=== PATIENT | female | born 1950 | race Caucasian/White ===

== ENCOUNTER 2018-06-18 02:29 | Inpatient (IN) | payer MEDICARE, OTHER ==
[2018-06-18] MEDS ORDERED: ATORVASTATIN 80 MG TAB PO STA (02:45)
--- NOTE | 2018-06-18 02:45 | ED ---
Chest Pain HPI - General Chief Complaint: Chest Pain Stated Complaint: Chest Pain Time Seen by Provider: 06/18/18 02:30 Source: patient Mode of arrival: ambulatory Limitations: no limitations - History of Present Illness Initial Comments: This patient is a 68-year-old woman with history of hypertension who is transferred here from [facility] to go to the [facility]. The patient's symptoms started around midnight, while she was lying in bed. She indicates pain to substernal area and states that radiates to left arm. She indicates an aching/heaviness. It was initially severe. She had some coming nausea. The patient did go to the other hospital, and it was reported that she had an EKG that showed a STEMI. Her case was discussed with Dr. Michelle, who is covering cardiology [facility] and he called here to report patient appeared to be having a true posterior MO., The patient reports that she is indeed having marked relief of her symptoms. Patient was given oxygen, aspirin, morphine, heparin, and transferred here. MD Complaint: chest pain Onset/Timin -: hour(s) Onset: during rest Pain Location: substernal Pain Radiation: LUE Severity: mild Quality: aching, heaviness Consistency: constant Improves With: medication-other Worsens With: nothing Anginal Symptoms: nausea Treatments Prior to Arrival: aspirin, oxygen, other - Related Data Home Medications Medication Instructions Recorded Confirmed DULoxetine HCL [Cymbalta] 60 mg PO BID 06/18/18 06/18/18 Metoprolol Tartrate [Lopressor] 12.5 mg PO BID 06/18/18 06/18/18 Omeprazole 40 mg PO DAILY 06/18/18 06/18/18 Oxybutynin Chloride [Oxybutynin 15 mg PO DAILY 06/18/18 06/18/18 Chloride ER] Simvastatin [Zocor] 20 mg PO HS 06/18/18 06/18/18 Allergies Allergy/AdvReac Type Severity Reaction Status Date / Time No Known Allergies Allergy Verified 06/18/18 02:38 Review of Systems ROS Statement: Those systems with pertinent positive or pertinent negative responses have been documented in the HPI. ROS Other: All systems not noted in ROS Statement are negative. Constitutional: Denies: fever, chills Respiratory: Denies: cough, dyspnea Cardiovascular: Reports: chest pain. Denies: palpitations, orthopnea, edema, syncope Gastrointestinal: Reports: nausea. Denies: abdominal pain, vomiting, melena, hematochezia Genitourinary: Denies: dysuria, hematuria Musculoskeletal: Denies: back pain Skin: Denies: rash Neurological: Denies: headache, weakness, numbness Hematological/Lymphatic: Denies: easy bleeding EKG Findings - EKG Comments: EKG Findings:: Patient appears to have very minimal ST elevation in lead 3. Mild ST depressions in V2 and V3. - EKG Results: EKG: interpreted by ERMD, sinus rhythm (With PACs. Rate 87 bpm), normal axis Past Medical History Past Medical History: Hyperlipidemia, Hypertension Additional Past Medical History / Comment(s): peripheral neuropathy. History of Any Multi-Drug Resistant Organisms: None Reported Past Surgical History: Adenoidectomy, Cholecystectomy, Tonsillectomy, Tubal Ligation Past Psychological History: No Psychological Hx Reported Smoking Status: Former smoker Past Alcohol Use History: None Reported Past Drug Use History: None Reported - Past Family History Mother Family Medical History: Cancer Additional Family Medical History / Comment(s): liver Father Family Medical History: Congestive Heart Failure (CHF) Brother(s) Family Medical History: Congestive Heart Failure (CHF) Additional Family Medical History / Comment(s): General Exam Limitations: no limitations General appearance: alert, in no apparent distress Head exam: Present: atraumatic, normocephalic Eye exam: Present: normal appearance, PERRL, EOMI. Absent: scleral icterus, conjunctival injection ENT exam: Present: normal oropharynx Neck exam: Present: normal inspection Respiratory exam: Present: normal lung sounds bilaterally. Absent: respiratory distress, wheezes, rales, rhonchi, stridor, chest wall tenderness Course Vital Signs 06/18/18 06/18/18 02:34 02:46 Temperature 99.2 F Pulse Rate 93 93 Respiratory 16 16 Rate Blood Pressure 144/87 131/84 O2 Sat by Pulse 98 98 Oximetry Chest Pain MDM - MDM Patient is 68-year-old woman transferred here from [facility] to go to the [facility]. As the [facility] was not staffed on patient arrival she is seen in the emergency department. Did discuss the case with cardiology. Critical Care Time Critical Care Time: Yes (30 minutes) Disposition Clinical Impression: Acute coronary syndrome Disposition: ADMITTED IP TO THIS HOSP Condition: Critical Is patient prescribed a controlled substance at d/c from ED?: No
[2018-06-18 02:47] LABS: HCT 36.3 % (34.0-46.0); MCH 28.4 pg (25.0-35.0); MCV 86.1 fL (80.0-100.0); Mean Platelet Volume 8.3; Platelet Count 321 k/uL (150-450); RBC 4.22 m/uL (3.80-5.40); RDW 14.2 % (11.5-15.5); WBC 10.8 k/uL (3.8-10.6)
[2018-06-18] MEDS ORDERED: LIDOCAINE 1% INJ 10MG/ML (20 ML MDV) ONE (02:55)
[2018-06-18] MEDS ORDERED: SODIUM CHLORIDE 0.9% 500 ML 500 ML IV ONE (03:00)
[2018-06-18 03:13] LABS: Albumin 4.1 g/dL (3.5-5.0); Calcium 9.4 mg/dL (8.4-10.2); Potassium 4.5 mmol/L (3.5-5.1); Total Bilirubin 0.3 mg/dL (0.2-1.3); Total Protein 7.6 g/dL (6.3-8.2)
[2018-06-18] MEDS ORDERED: LIDOCAINE 1% INJ 10MG/ML (20 ML MDV) SQ ONE ×2 (03:14)
[2018-06-18 03:20] LABS: INR 0.9 (<1.2); Prothrombin Time 10.2 sec (9.0-12.0)
[2018-06-18] MEDS: NITROGLYCERIN 1000MCG/10ML SYRINGE INTRACORON ONE ×4 (03:21→04:03)
[2018-06-18 03:24] LABS: Creatine Kinase MB 17.6 ng/mL (0.0-2.4)
[2018-06-18 03:25] LABS: Partial Thromboplastin Time 146.7 sec (22.0-30.0)
[2018-06-18] MEDS ORDERED: NITROGLYCERIN SL TABS 0.4 MG TAB SUBLINGUAL ONE (03:27)
[2018-06-18] MEDS ORDERED: BIVALIRUDIN BOLUS 250 MG/50 ML IV ONE (03:28)
[2018-06-18] MEDS ORDERED: BIVALIRUDIN 250 MG in SODIUM CHLORIDE 0.9% 50 ML IV ONE (03:29)
[2018-06-18] MEDS ORDERED: IOPAMIDOL-370 100ML BTL INJ ONE ×2 (03:34→04:04)
[2018-06-18 03:49] LABS: Troponin I 1.34 ng/mL (0.000-0.034)
[2018-06-18] MEDS ORDERED: CLOPIDOGREL 75 MG TAB ONE (03:53)
[2018-06-18] MEDS ORDERED: CLOPIDOGREL 75 MG TAB PO ONE (03:56)
[2018-06-18] MEDS ORDERED: amLODIPine 5 MG TAB ONE (03:59)
[2018-06-18] MEDS ORDERED: amLODIPine 5 MG TAB PO ONE (04:00)
[2018-06-18] MEDS ORDERED: ZOLPIDEM 5 MG TAB PO PRN (04:19)
[2018-06-18] MEDS ORDERED: RX INFO: IV CONTRAST WAS GIVEN 1 EACH MISC MISCELLANE PRN (04:19)
[2018-06-18] MEDS ORDERED: MAG HYDROX/AL HYDROX/SIMETH 30 ML CUP PO PRN (04:19)
[2018-06-18] MEDS ORDERED: ATROPINE SULFATE 0.1 MG/ML 10ML SYRINGE IV PRN (04:19)
[2018-06-18] MEDS ORDERED: NITROGLYCERIN SL TABS 0.4 MG TAB SUBLINGUAL PRN (04:19)
[2018-06-18] MEDS: SODIUM CHLORIDE 0.9% 1,000 ML IV SCH ×4 (04:30→11:22)
[2018-06-18 04:54] LABS: Glucose,Whole Blood 129 mg/dL (75-99)
[2018-06-18] MEDS: LISINOPRIL 10 MG TAB PO SCH ×2 (07:11→09:48)
--- NOTE | 2018-06-18 08:13 | CC ---
CARDIAC CATHETERIZATION REPORT DATE OF SERVICE: 06/18/2018. PROCEDURE: 1. Left heart catheterization and coronary angiography. 2. PTCA and stenting of the first obtuse marginal branch of circumflex with a drug- eluting stent. 3. PTCA and stenting of mid circumflex coronary artery with a drug-eluting stent. PERFORMED BY: Dr. Mary Resendiz. SEDATION: Moderate conscious sedation time was 62 minutes. The patient was administered Versed. Oxygen saturation, hemodynamics and EKG were monitored closely. CLINICAL INFORMATION: Mrs. Elana Perez is a 68-year-old lady with a history of hypertension, hyperlipidemia. At about 11:30 pm last night she developed chest pressure while she was playing with her granddaughter and developed chest discomfort radiating to the throat, came into the emergency room at [facility]. An EKG revealed precordial ST depression. She was transferred here after discussion with Dr. Maria Luz Michelle. I evaluated the patient in the emergency room and advised prompt cardiac catheterization with a suspicion that she may have a circumflex lesion. She was hemodynamically stable and her chest pain had improved when I saw her. PROCEDURE NOTE: Under local anesthesia and strict aseptic precautions, a 6-Russian introducer was placed in the right femoral artery. Using a standard right Jason catheter, I performed selective coronary angiography of the right coronary artery and used a guide catheter for the left coronary artery. I used a 3.5 left Jason type guide catheter of 6- Russian caliber. A pigtail catheter was used to check LV pressure but LV gram was not performed. Following cardiac catheterization, I proceeded to perform PCI of circumflex marginal and mid circumflex expeditiously. CARDIAC CATHETERIZATION FINDINGS: The left ventricular end-diastolic pressure was about 20 mmHg without any gradient across aortic valve. CORONARY ANGIOGRAPHY FINDINGS: LEFT MAIN CORONARY ARTERY: Short patent vessel that immediately bifurcates into LAD and circumflex. No significant disease. LEFT ANTERIOR DESCENDING CORONARY ARTERY: Good caliber vessel extends along the anterior wall. There is moderate calcification, gives off a fair-sized septal and a fair-sized diagonal and several septal branches runs all the way to the apex and curves over the apex to supply the inferoapical portion of left ventricle. No significant disease is noted in the LAD system. LEFT POSTERIOR CIRCUMFLEX CORONARY ARTERY: Technically a nondominant vessel, gives off a large-sized obtuse marginal that runs laterally and in the mid to distal segment. There was a 99% stenosis with calcification and sluggish flow. This could be the culprit vessel. The continuation of circumflex in the AV groove also has a mid lesion of about 80% distally bifurcates into 2 small branches. Mid circumflex therefore has 80% lesion and the circumflex marginal has a 99% heavily calcified lesion, but the amount of myocardium supplied by both the branches is relatively small but cumulatively of moderate extent. RIGHT CORONARY ARTERY: This is a technically dominant vessel, moderate calcification in the mid segment has about a 40% lesion and distally it bifurcates into a PDA and PLV. PLV is larger, supplies a fair amount of myocardium. Mid lesion is about 40-45 percent. No critical lesions are noted. The acute marginals are free of significant disease. There is moderate calcification. The RCA therefore is dominant with a long mid segment of 40% lesion and distally bifurcates into 2 branches. Left ventriculogram was not performed. Following the cardiac catheterization, I proceeded to perform PCI of the circumflex system. PCI PROCEDURE DETAILS: A JL3.5 guide catheter was used to cannulate the left coronary artery. A run-through wire was used to cross the lesion in the circumflex marginal. I performed predilatation of the lesion with a 2.25 x 12 mm Trek balloon. Following this, I deployed a 12 mm 2.5 caliber Xience stent. The proximal end of the stent had a small dissection. This was somewhat of a larger stent but I had used it because hopefully the restenoses would be lower. However, the proximal dissection was very focal. I addressed this by telescoping another 2.0 caliber Meldrim stent of 8 mm length at 12 atmospheres. Excellent angiographic result was achieved. I then tried to advance the same wire into the main circumflex, but I could not. I switched over to a BMW wire with a steep curve. With this, I was able to advance down into the circumflex midportion. I then deployed a 2.0 caliber angelina stent into the mid circumflex at 12 atmospheres. Excellent angiographic result was achieved. Patient had precordial ST depression with a mid circumflex dilatation, but not with OM dilatation. She had no significant chest discomfort with either dilatation. Excellent angiographic result without complication was achieved. The sheath was taken out and Angio-Seal device used to secure hemostasis. However, there was some oozing and FemoStop was applied. The patient was pain free, hemodynamically stable with a good angiographic result and she will be transferred to the ICU. Results were discussed with the patient and family. CHIP / HERMINIA: [id number] /
--- NOTE | 2018-06-18 08:13 | CONS ---
CONSULTATION Mrs. Elana Perez is a 68-year-old lady with a history of hypertension, hyperlipidemia, and depression. She was seen by me in the emergency room upon transfer from [facility] where she presented with chest pain starting at 11:30 pm. The patient was hemodynamically stable. The pain had improved. She was playing with her granddaughter when she developed chest discomfort radiating to the throat, had some diaphoresis. No nausea or vomiting. Pain persisted. She went to the emergency room at [facility], had EKG which revealed precordial ST depression and this EKG was reviewed by Dr. Maria Luz Michelle and transferred here for cardiac catheterization. The patient was hemodynamically stable and the chest pain had improved. PAST MEDICAL HISTORY: 1. Hypertension. 2. Hyperlipidemia. 3. Negative stress test according to the patient in 2017. 4. History of depression. MEDICATIONS: At home include simvastatin 20 mg daily, omeprazole 40 mg daily, metoprolol tartrate 12.5 mg b.i.d., Cymbalta 20 mg daily. ALLERGIES: None. REVIEW OF SYSTEMS: Unremarkable other than above-mentioned facts. PHYSICAL EXAMINATION: Blood pressure was 180/70, pulse rate is 70 per minute. HEENT: Unremarkable. Fundus was not examined by me. Neck is supple. No JVD. I do not hear a carotid bruit. Heart exam reveals S1, S2 heard normally. No significant murmurs. Lungs are clear. Abdomen is soft, nontender. Lower extremities reveal diminished pulses. Central nervous system was grossly within normal limits. EKG revealed sinus mechanism with a precordial ST depression in leads V1 to V3, very subtle ST elevation in 2, 3, AVF on the initial EKG, but subsequent EKGs showed improvement with almost near normalization. IMPRESSION: 1. Acute non-ST elevation myocardial infarction probably ischemia in circumflex distribution. 2. Hypertension. 3. Hyperlipidemia. 4. History of depression. RECOMMENDATION: I recommended prompt cardiac catheterization and PCI and proceeded to perform the procedure expeditiously. MMODL / IJN: [id number] /
[2018-06-18] MEDS: METOPROLOL TARTRATE 25 MG TAB PO SCH ×2 (09:48→21:03)
[2018-06-18] MEDS: ASPIRIN 81 MG PO SCH (09:53)
[2018-06-18 09:54] VITALS: BMI 32.8
--- NOTE | 2018-06-18 11:38 | ECHOF ---
Referral Reason:NSTEMI LCX PCI MEASUREMENTS -------- HEIGHT: 160.0 cm WEIGHT: 83.9 kg BP: IVSd: 1.1 cm (0.6 - 1.1) LVIDd: 4.0 cm (3.9 - 5.3) LVPWd: 1.0 cm (0.6 - 1.1) IVSs: 1.2 cm LVIDs: 3.1 cm LVPWs: 0.9 cm MV EXCURSION: 12.495 mm (> 18.000) MV EF SLOPE: 110 mm/s (70 - 150) EPSS: 1.5 cm MV E Shayan: 0.90 m/s MV DecT: 195 ms MV A Shayan: 0.74 m/s MV E/A Ratio: 1.21 RAP: 5.00 mmHg RVSP: 8.72 mmHg FINDINGS -------- Sinus rhythm. This was a technically difficult study with suboptimal views. The left ventricular size is normal. Left ventricular wall thickness is normal. Overall left vent ricular systolic function is mild-moderately impaired with, an EF between 40 - 45 %. Apical lateral LV wall motion is hypokinetic. Apical inferior LV wall motion is hypokinetic. Apical septum LV wall motion is hypokinetic. The right ventricle is normal in size and function. The left atrium is normal in size. The right atrium is normal in size. Lumason used The aortic valve is trileaflet and appears structurally normal. There is trace mitral regurgitation. Trace tricuspid regurgitation present. The right ventricular systolic pressure, as measured by Dopp ler, is 8.72mmHg. Pulmonic valve appears structurally normal. The aortic root size is normal. IVC Not well visulized. The pericardium is normal. CONCLUSIONS -------- 1. Sinus rhythm. 2. This was a technically difficult study with suboptimal views. 3. The left ventricular size is normal. 4. Left ventricular wall thickness is normal. 5. Overall left ventricular systolic function is mild-moderately impaired with, an EF between 40 - 45 %. 6. Apical lateral LV wall motion is hypokinetic. 7. Apical inferior LV wall motion is hypokinetic. 8. Apical septum LV wall motion is hypokinetic. 9. The right ventricle is normal in size and function. 10. The left atrium is normal in size. 11. The right atrium is normal in size. 12. Lumason used 13. The aortic valve is trileaflet and appears structurally normal. 14. There is trace mitral regurgitation. 15. Trace tricuspid regurgitation present. 16. The right ventricular systolic pressure, as measured by Doppler, is 8.72mmHg. 17. Pulmonic valve appears structurally normal. 18. The aortic root size is normal. 19. IVC Not well visulized. 20. The pericardium is normal. CALL WORKER: Radha Thompson RDCS
[2018-06-18 11:57] LABS: Glucose,Whole Blood 104 mg/dL (75-99)
--- NOTE | 2018-06-18 12:23 | P.HPIM ---
History of Present Illness This is a pleasant 68 years old female with past medical history of hyperlipidemia, hypertension, peripheral neuropathy. who presents because of chest pain, patient states that about one week she has episodes of chest pain which is resolved by itself. However last night around 11 PM she developed severe central chest pain radiating to the back, left arm, neck and jaw. Pain was progressive. Not associated with dyspnea or dizziness however she has some nausea without vomiting. On admission her troponin was 1.3, went up this morning to 39.1 this morning. EKG showing ST elevation myocardial infarction in leads 2, 3 and aVF. She has mild leukocytosis of 10.8 K, creatinine 1.1, sugar is 129-139. Patient underwent cardiac cath this morning she had 80% narrowing in the circumflex artery status post PCI. Echo showing ejection fraction 40-45% Review of Systems CONSTITUTIONAL: No fever, no malaise, no fatigue. HEENT: No recent visual problems or hearing problems. Denied any sore throat. CARDIOVASCULAR: No orthopnea, PND, no palpitations, no syncope. PULMONARY: No shortness of breath, no cough, no hemoptysis. GASTROINTESTINAL: No diarrhea, no nausea, no vomiting, no abdominal pain. Normoactive bowel sounds. NEUROLOGICAL: No headaches, no weakness, no numbness. HEMATOLOGICAL: Denies any bleeding or petechiae. GENITOURINARY: Denies any burning micturition, frequency, or urgency. MUSCULOSKELETAL/RHEUMATOLOGICAL: Denies any joint pain, swelling, or any muscle pain. ENDOCRINE: Denies any polyuria or polydipsia. Past Medical History Past Medical History: Hyperlipidemia, Hypertension Additional Past Medical History / Comment(s): peripheral neuropathy. History of Any Multi-Drug Resistant Organisms: None Reported Past Surgical History: Adenoidectomy, Cholecystectomy, Tonsillectomy, Tubal Ligation Additional Past Surgical History / Comment(s): Cataract removal Past Psychological History: No Psychological Hx Reported Smoking Status: Former smoker Past Alcohol Use History: None Reported Past Drug Use History: None Reported - Past Family History Mother Family Medical History: Cancer Additional Family Medical History / Comment(s): liver Father Family Medical History: Congestive Heart Failure (CHF) Brother(s) Family Medical History: Congestive Heart Failure (CHF) Additional Family Medical History / Comment(s): Medications and Allergies Home Medications Medication Instructions Recorded Confirmed Type DULoxetine HCL [Cymbalta] 60 mg PO BID 06/18/18 06/18/18 History Indomethacin [Indocin] 50 mg PO TID 06/18/18 06/18/18 History Oxybutynin Chloride [Oxybutynin 15 mg PO DAILY 06/18/18 06/18/18 History Chloride ER] RX: Metoprolol Tartrate [Lopressor] 12.5 mg PO BID 06/18/18 06/18/18 History RX: Omeprazole 40 mg PO DAILY 06/18/18 06/18/18 History Simvastatin [Zocor] 20 mg PO HS 06/18/18 06/18/18 History Allergies Allergy/AdvReac Type Severity Reaction Status Date / Time No Known Allergies Allergy Verified 06/18/18 02:38 Physical Exam Vitals: Vital Signs Temp Pulse Resp BP Pulse Ox 06/18/18 11:00 75 12 98/44 96 06/18/18 10:30 77 12 88/60 96 06/18/18 10:00 76 24 81/57 96 06/18/18 09:50 74 12 81/57 98 06/18/18 09:40 79 20 113/61 98 06/18/18 09:30 78 14 83/67 96 06/18/18 09:20 80 24 83/67 98 06/18/18 09:10 79 25 H 87/65 98 06/18/18 09:00 75 25 H 97/69 97 06/18/18 08:50 74 11 L 97/69 98 06/18/18 08:40 75 13 94/57 97 06/18/18 08:30 74 7 L 84/58 98 06/18/18 08:20 77 15 84/50 98 06/18/18 08:10 79 18 71/43 97 06/18/18 08:00 99.1 F 79 21 85/41 95 06/18/18 07:50 75 22 85/41 97 06/18/18 07:40 82 11 L 73/49 97 06/18/18 07:30 80 11 L 83/31 98 06/18/18 07:20 92 23 76/59 96 06/18/18 07:10 87 19 80/46 96 06/18/18 07:00 90 18 95 06/18/18 06:50 92 16 84/61 94 L 06/18/18 06:40 80 22 85/65 94 L 06/18/18 06:30 81 15 97 06/18/18 06:20 78 23 89/58 95 06/18/18 06:10 75 21 89/58 95 06/18/18 06:00 82 14 103/51 97 06/18/18 05:50 80 24 103/51 98 06/18/18 05:40 81 12 104/69 98 06/18/18 05:30 76 22 103/71 98 06/18/18 05:20 78 12 103/71 97 06/18/18 05:19 98 06/18/18 05:10 78 12 93/69 98 06/18/18 05:00 98.6 F 74 22 97/82 94 L 06/18/18 04:52 20 06/18/18 04:45 16 06/18/18 02:46 93 16 131/84 98 06/18/18 02:34 99.2 F 93 16 144/87 98 Intake and Output 06/17/18 06/18/18 06/18/18 22:59 06:59 14:59 Intake Total 456.8 1075 Output Total 550 950 Balance -93.2 125 Intake: IV 456.8 1075 Sodium Chloride 0.9% 1, 225 75 000 ml @ 100 mls/hr IV . Q10H MATILDA Rx#:[id number] Sodium Chloride 0.9% 1, 1000 000 ml @ 250 mls/hr IV . Q4H MATILDA Rx#:[id number] Output: Urine 550 950 Other: # Voids 1 1 Weight 84 kg 84 kg GENERAL: The patient is alert and oriented x3, not in any acute distress. Well developed, well nourished. HEENT: Pupils are round and equally reacting to light. EOMI. No scleral icterus. No conjunctival pallor. Normocephalic, atraumatic. No pharyngeal erythema. No thyromegaly. CARDIOVASCULAR: S1 and S2 present. No murmurs, rubs, or gallops. PULMONARY: Chest is clear to auscultation, no wheezing or crackles. ABDOMEN: Soft, nontender, nondistended, normoactive bowel sounds. No palpable organomegaly. MUSCULOSKELETAL: No joint swelling or deformity. EXTREMITIES: No cyanosis, clubbing, or pedal edema. NEUROLOGICAL: Gross neurological examination did not reveal any focal deficits. SKIN: No rashes. Results CBC & Chem 7: 06/18/18 02:35 06/18/18 02:35 Labs: Abnormal Lab Results - Last 24 Hours (Table) 06/18/18 06/18/18 06/18/18 Range/Units 02:35 02:35 02:35 WBC (3.8-10.6) k/uL APTT 146.7 H* (22.0-30.0) sec Chloride 108 H (98-107) mmol/L BUN 20 H (7-17) mg/dL Creatinine 1.12 H (0.52-1.04) mg/dL Glucose 139 H (74-99) mg/dL POC Glucose (mg/dL) (75-99) mg/dL AST 42 H (14-36) U/L Total Creatine Kinase 420 H (30-135) U/L CK-MB (CK-2) 17.6 H (0.0-2.4) ng/mL Troponin I 1.340 H* (0.000-0.034) ng/mL 06/18/18 06/18/18 06/18/18 Range/Units 02:35 04:52 08:23 WBC 10.8 H (3.8-10.6) k/uL APTT (22.0-30.0) sec Chloride (98-107) mmol/L BUN (7-17) mg/dL Creatinine (0.52-1.04) mg/dL Glucose (74-99) mg/dL POC Glucose (mg/dL) 129 H (75-99) mg/dL AST (14-36) U/L Total Creatine Kinase (30-135) U/L CK-MB (CK-2) (0.0-2.4) ng/mL Troponin I 39.100 H* (0.000-0.034) ng/mL Thrombosis Risk Factor Assmnt - Choose All That Apply Each Factor Represents 1 point: Medical pt on bed rest, Obesity (BMI >25) Each Risk Factor Represents 2 Points: Age 61-74 years Other congenital or acquired thrombophilia - If yes, enter type in comment: No Thrombosis Risk Factor Assessment Total Risk Factor Score: 4 Thrombosis Risk Factor Assessment Level: Moderate Risk Assessment and Plan Assessment: Acute ST elevation myocardial infarction in the inferior limits Acute coronary disease with 80% obstruction in the circumflex artery, status post cardiac catheterization and PCI Acute systolic heart failure with EF 40-45% Plan: This is a pleasant 68 years old female who presents because of acute STEMI. Status post cardiac cath. Cardiology team R following the case. Patient currently on aspirin, Lipitor, Plavix and lisinopril with Lopressor. Labs and medication were reviewed.. Continue same treatment. Continue with symptomatic treatment. Resume home medication. Monitor lytes and vitals. DVT and GI prophylaxis. Further recommendations of the clinical course of the patient DVT prophylaxis: Subcutaneous heparin GI Prophylaxis: Pepcid Prognosis is guarded
[2018-06-18] MEDS: DULoxetine HCL 60 MG CAPSULE.DR PO SCH ×2 (12:45→20:57)
[2018-06-18] MEDS: PANTOPRAZOLE 40 MG TABLET PO SCH (12:45)
[2018-06-18] MEDS: ATORVASTATIN 80 MG TAB PO SCH (20:57)
--- NOTE | 2018-06-18 22:14 | PN ---
PROGRESS NOTE This patient came with acute posterior wall myocardial infarction and underwent stent to the obtuse marginal branch and the circumflex coronary artery. The patient is feeling better. Her blood pressure remains in the range of 80 to 90 mmHg. Patient has been getting a fluid challenge. First and second heart sounds are heard. Lungs are clear to auscultation and percussion. Patient's troponin went up to 39. Continue the IV fluids. We will hold the lisinopril at present until the patient's blood pressure is stable. MMODL / IJN: [id number] /
[2018-06-19] MEDS: SODIUM CHLORIDE 0.9% 1,000 ML IV SCH (05:26)
[2018-06-19 05:36] LABS: Basophils # (A) 0.1 k/uL (0-0.2); Basophils % (A) 1 %; Eosinophils # (A) 0.2 k/uL (0-0.7); Eosinophils % (A) 2 %; HCT 35.5 % (34.0-46.0); Lymphocytes # (A) 2.3 k/uL (1.0-4.8); Lymphocytes % (A) 23 %; MCH 27.6 pg (25.0-35.0); MCV 88.9 fL (80.0-100.0); Mean Platelet Volume 7.8; Monocytes # (A) 0.9 k/uL (0-1.0); Monocytes % (A) 9 %; Neutrophils # (A) 6.3 k/uL (1.3-7.7); Neutrophils % (A) 63 %; Platelet Count 259 k/uL (150-450); RBC 3.99 m/uL (3.80-5.40); RDW 14.2 % (11.5-15.5)
[2018-06-19 05:46] LABS: Calcium 8.4 mg/dL (8.4-10.2); Potassium 4.2 mmol/L (3.5-5.1)
[2018-06-19] MEDS: PANTOPRAZOLE 40 MG TABLET PO SCH (07:32)
[2018-06-19] MEDS: CLOPIDOGREL 75 MG TAB PO SCH (08:36)
[2018-06-19] MEDS: DULoxetine HCL 60 MG CAPSULE.DR PO SCH ×2 (08:36→21:10)
[2018-06-19] MEDS: ASPIRIN 81 MG PO SCH (08:36)
[2018-06-19] MEDS: METOPROLOL TARTRATE 25 MG TAB PO SCH ×2 (10:35→21:06)
--- NOTE | 2018-06-19 12:11 | PN ---
PROGRESS NOTE This patient is status post posterior wall myocardial infarction. Patient is stable. She is sitting in a chair and she at the bedside denies any respiratory distress. The patient's blood pressure now is 110/80 mmHg. First and second heart sounds are normal. Lungs are clear to auscultation and percussion. Patient's urine output is good. The patient's creatinine is 0.86. We will still hold the Lopressor today. Lisinopril is discontinued. Patient will be ambulated and if the blood pressure permits, we will start her on Lopressor 25 mg b.i.d. from tomorrow. The patient's overall echocardiogram reveals a normal left ventricular systolic function. MMODL / IJN: [id number] /
--- NOTE | 2018-06-19 18:27 | P.PN ---
Subjective This is a pleasant 68 years old female with past medical history of hyperlipidemia, hypertension, peripheral neuropathy. who presents because of chest pain, patient states that about one week she has episodes of chest pain which is resolved by itself. However last night around 11 PM she developed severe central chest pain radiating to the back, left arm, neck and jaw. Pain was progressive. Not associated with dyspnea or dizziness however she has some nausea without vomiting. On admission her troponin was 1.3, went up this morning to 39.1 this morning. EKG showing ST elevation myocardial infarction in leads 2, 3 and aVF. She has mild leukocytosis of 10.8 K, creatinine 1.1, sugar is 129-139. Patient underwent cardiac cath this morning she had 80% narrowing in the circumflex artery status post PCI. Echo showing ejection fraction 40-45% 06/19/2018 Patient presents with inferior myocardial infarction, she is a status post stenting of the obtuse marginal branch of the circumflex artery. Patient denies chest pain or dyspnea today. Hemodynamically stable. CBC and BMP were unremarkable. Her blood pressure was on the low side AUGUST inhibitor was on hold. As well as Lopressor was held. Cardiology will recommend to start beta ga again tomorrow morning Objective - Vital Signs Vital signs: Vital Signs Temp 98.1 F 06/19/18 16:00 Pulse 86 06/19/18 16:00 Resp 16 06/19/18 16:00 BP 85/63 06/19/18 16:00 Pulse Ox 99 06/19/18 16:00 Intake & Output 06/18/18 06/19/18 06/19/18 18:59 06:59 18:59 Intake Total 2495 1110 660 Output Total 1750 2650 0 Balance 745 -1540 660 Weight 84 kg 88.3 kg Intake: IV 1775 1110 60 Sodium Chloride 0.9% 1, 775 1110 60 000 ml @ 100 mls/hr IV . Q10H [facility] Rx#:[id number] Sodium Chloride 0.9% 1, 1000 000 ml @ 250 mls/hr IV . Q4H [facility] Rx#:[id number] Oral 720 600 Output: Urine 1750 2650 0 Other: Voiding Method Bedside Commode Bedside Commode Toilet # Voids 1 1 1 - Exam GENERAL: The patient is alert and oriented x3, not in any acute distress. Well developed, well nourished. HEENT: Pupils are round and equally reacting to light. EOMI. No scleral icterus. No conjunctival pallor. Normocephalic, atraumatic. No pharyngeal erythema. No thyromegaly. CARDIOVASCULAR: S1 and S2 present. No murmurs, rubs, or gallops. PULMONARY: Chest is clear to auscultation, no wheezing or crackles. ABDOMEN: Soft, nontender, nondistended, normoactive bowel sounds. No palpable organomegaly. MUSCULOSKELETAL: No joint swelling or deformity. EXTREMITIES: No cyanosis, clubbing, or pedal edema. NEUROLOGICAL: Gross neurological examination did not reveal any focal deficits. SKIN: No rashes. - Labs CBC & Chem 7: 06/19/18 05:06 06/19/18 05:06 Labs: Abnormal Lab Results - Last 24 Hours (Table) 06/19/18 06/19/18 Range/Units 05:06 05:06 Hgb 11.0 L (11.4-16.0) gm/dL Chloride 111 H (98-107) mmol/L Glucose 122 H (74-99) mg/dL Assessment and Plan Assessment: Acute ST elevation myocardial infarction in the inferior limits Acute coronary disease with 80% obstruction in the circumflex artery, status post cardiac catheterization and PCI Acute systolic heart failure with EF 40-45% Plan: This is a pleasant 68 years old female who presents because of acute STEMI. Status post cardiac cath. Cardiology team R following the case. Patient currently on aspirin, Lipitor, Plavix and lisinopril with Lopressor. Labs and medication were reviewed.. Continue same treatment. Continue with symptomatic treatment. Resume home medication. Monitor lytes and vitals. DVT and GI prophylaxis. Further recommendations of the clinical course of the patient DVT prophylaxis: Subcutaneous heparin GI Prophylaxis: Pepcid Prognosis is guarded
[2018-06-19] MEDS: ATORVASTATIN 80 MG TAB PO SCH (21:10)
[2018-06-20] MEDS ORDERED: SODIUM CHLORIDE 0.9% 500 ML 200 ML IV ONE (00:28)
[2018-06-20 00:55] LABS: HGB 11.1 gm/dL (11.4-16.0); MCH 28.8 pg (25.0-35.0); MCHC 33.6 g/dL (31.0-37.0); MCV 85.8 fL (80.0-100.0); Mean Platelet Volume 7.1; Platelet Count 268 k/uL (150-450); RBC 3.85 m/uL (3.80-5.40); WBC 12.6 k/uL (3.8-10.6)
[2018-06-20 01:21] LABS: Calcium 8.8 mg/dL (8.4-10.2); Magnesium 2.1 mg/dL (1.6-2.3)
[2018-06-20] MEDS ORDERED: SODIUM CHLORIDE 0.9% 500 ML 400 ML IV ONE (01:59)
[2018-06-20] MEDS: CLOPIDOGREL 75 MG TAB PO SCH (08:07)
[2018-06-20] MEDS: PANTOPRAZOLE 40 MG TABLET PO SCH (08:07)
[2018-06-20] MEDS: ASPIRIN 81 MG PO SCH (08:07)
[2018-06-20] MEDS: DULoxetine HCL 60 MG CAPSULE.DR PO SCH ×2 (08:07→20:29)
[2018-06-20] MEDS: METOPROLOL TARTRATE 25 MG TAB PO SCH (11:31)
--- NOTE | 2018-06-20 12:31 | PN ---
PROGRESS NOTE This patient is status post prior inferior wall myocardial infarction with stent to the circumflex coronary artery. Patient feels good. She remains asymptomatic. Patient had an intermittent low blood pressure during the night. Patient was asymptomatic. Patient received the fluid challenge. She has a good urine output. Creatinine remains normal. First and second heart sounds are normal. Lungs are clear to auscultation and percussion. There is a prominent right subclavian bruit noted. We will check the ultrasound of both subclavian arteries to see if there is any evidence of significant subclavian stenosis. MMODL / IJN: [id number] /
--- NOTE | 2018-06-20 17:00 | P.PN ---
Subjective Principal diagnosis: Acute inferior myocardial infarction; status post stenting of obtuse marginal branch of left circumflex 68 years old female with past medical history of hyperlipidemia, hypertension, peripheral neuropathy. who presents because of chest pain, patient states that about one week she has episodes of chest pain which is resolved by itself. However last night around 11 PM she developed severe central chest pain radiating to the back, left arm, neck and jaw. Pain was progressive. Not associated with dyspnea or dizziness however she has some nausea without vomiting. On admission her troponin was 1.3, went up this morning to 39.1 this morning. EKG showing ST elevation myocardial infarction in leads 2, 3 and aVF. She has mild leukocytosis of 10.8 K, creatinine 1.1, sugar is 129-139. Patient underwent cardiac cath this morning she had 80% narrowing in the circumflex artery status post PCI. Echo showing ejection fraction 40-45% 06/20/2018 Patient is seen and evaluated at bedside for follow-up; patient admitted with inferior myocardial infarction and is status post stenting of the obtuse marginal branch of circumflex artery Vital signs remained stable; labs are reviewed and are stable Cardiology recommendations for ultrasound of both subclavian arteries for follow -up on right subclavian bruit in order to rule out subclavian stenosis Objective - Vital Signs Vital signs: Vital Signs Temp 98.4 F 06/20/18 08:00 Pulse 90 06/20/18 10:00 Resp 16 06/20/18 08:00 BP 80/57 06/20/18 10:00 Pulse Ox 96 06/20/18 08:00 Intake & Output 06/19/18 06/20/18 06/20/18 18:59 06:59 18:59 Intake Total 660 800 120 Output Total 0 600 Balance 660 200 120 Weight 86 kg Intake: IV 60 Sodium Chloride 0.9% 1, 60 000 ml @ 100 mls/hr IV . Q10H [facility] Rx#:[id number] Intake, IV Titration 600 Amount Sodium Chloride 0.9% 500 600 ml 500 ml @ 0 mls/hr IV . [facility] Rx#: [id number] Oral 600 200 120 Output: Urine 0 600 Other: Voiding Method Toilet Toilet Toilet # Voids 2 1 1 - Exam GENERAL: The patient is alert and oriented x3, not in any acute distress. Well developed, well nourished. HEENT: Pupils are round and equally reacting to light. EOMI. No scleral icterus. No conjunctival pallor. Normocephalic, atraumatic. No pharyngeal erythema. No thyromegaly. CARDIOVASCULAR: S1 and S2 present. No murmurs, rubs, or gallops. PULMONARY: Chest is clear to auscultation, no wheezing or crackles. ABDOMEN: Soft, nontender, nondistended, normoactive bowel sounds. No palpable organomegaly. MUSCULOSKELETAL: No joint swelling or deformity. EXTREMITIES: No cyanosis, clubbing, or pedal edema. NEUROLOGICAL: Gross neurological examination did not reveal any focal deficits. SKIN: No rashes. - Labs CBC & Chem 7: 06/20/18 00:39 06/20/18 00:39 Labs: Abnormal Lab Results - Last 24 Hours (Table) 06/20/18 06/20/18 Range/Units 00:39 00:39 WBC 12.6 H (3.8-10.6) k/uL Hgb 11.1 L (11.4-16.0) gm/dL Hct 33.0 L (34.0-46.0) % Chloride 109 H (98-107) mmol/L Glucose 111 H (74-99) mg/dL Assessment and Plan Assessment: 1. Acute ST elevation myocardial infarction; status post cardiac catheterization with stenting 2. Subclavian bruit; rule out subclavian stenosis - Cardiology has recommended subclavian ultrasound to rule out stenosis - Further recommendations after ultrasound report is available 2. Acute coronary disease with 80% obstruction in the circumflex artery, status post cardiac catheterization and PCI - We will continue with aspirin, atorvastatin, Plavix - Patient's blood pressure remains markedly low; we will continue to hold off on beta blockers per cardiology recommendations 3. Acute systolic heart failure with EF 40-45%; compensated 4. Gastroesophageal reflux disease; Protonix 40 mg daily 5. Anxiety and depression - We will continue with Cymbalta 60 mg twice a day - Ambien 5 mg by mouth daily at bedtime for sleep disorder 6. DVT prophylaxis; subcu heparin CODE STATUS; full code Time with Patient: Greater than 30
[2018-06-20] MEDS: ATORVASTATIN 80 MG TAB PO SCH (20:28)
[2018-06-21] MEDS: PANTOPRAZOLE 40 MG TABLET PO SCH (06:11)
[2018-06-21 07:07] LABS: Basophils # (A) 0.1 k/uL (0-0.2); Basophils % (A) 1 %; Eosinophils # (A) 0.7 k/uL (0-0.7); Eosinophils % (A) 5 %; HCT 36.8 % (34.0-46.0); HGB 11.4 gm/dL (11.4-16.0); Lymphocytes # (A) 1.9 k/uL (1.0-4.8); Lymphocytes % (A) 16 %; MCH 27.2 pg (25.0-35.0); MCHC 30.9 g/dL (31.0-37.0); Monocytes # (A) 0.9 k/uL (0-1.0); Monocytes % (A) 8 %; Neutrophils % (A) 67 %; Platelet Count 257 k/uL (150-450); RBC 4.18 m/uL (3.80-5.40); RDW 14.3 % (11.5-15.5); WBC 11.9 k/uL (3.8-10.6)
[2018-06-21 07:21] LABS: Potassium 4.4 mmol/L (3.5-5.1)
[2018-06-21] MEDS: CLOPIDOGREL 75 MG TAB PO SCH (09:41)
[2018-06-21] MEDS: DULoxetine HCL 60 MG CAPSULE.DR PO SCH (09:41)
[2018-06-21] MEDS: ASPIRIN 81 MG PO SCH (09:42)
[2018-06-21 10:23] VITALS: RESP 18
[2018-06-21 12:45] VITALS: BP 99/62; PULSE 82; TEMP 98.8
--- NOTE | 2018-06-21 13:39 | P.PN ---
Subjective Pt is seen and examined sitting up in bed in no acute distress. She denies symptoms of chest pain, shortness of breath, dizziness or palpitations. Laboratory data reviewed, WBC 11.9, hemoglobin 11.4, platelets 257, sodium 139, potassium 4.4, creatinine 0.88. Blood pressure 99/62 heart rate 82 afebrile maintaining oxygen saturation on room air. Currently maintained on aspirin 81 mg daily, atorvastatin 80 mg daily, Plavix 75 mg daily. GENERAL: Well-appearing, well-nourished and in no acute distress. NECK: Supple without JVD or thyromegaly. LUNGS: Breath sounds clear to auscultation bilaterally. Respiration equal and unlabored. No wheezes, rales or rhonchi. HEART: Regular rate and rhythm without murmurs, rubs or gallops. S1 and S2 heard. EXTREMITIES: Normal range of motion, no edema. No clubbing or cyanosis. Peripheral pulses intact. ASSESSMENT Acute inferior wall myocardial infarction status post stent placement to the circumflex artery Hypertension Dyslipidemia Former nicotine dependence PLAN Stable for discharge from a cardiac perspective. Follow-up in the office in one week with Dr. Resendiz. She should be discharged home on current medication regimen. Patient has been advised to call the office first thing Saturday morning to schedule her follow-up appointment since the office is currently closed at this time. Blood pressures remain on the low side, however she is asymptomatic. Advised her to not take lopressor at home until she sees Dr. Resendiz in the office and further recommendations will be made. Nurse Practitioner note has been reviewed, I agree with a documented findings and plan of care. Patient was seen and examined. Objective - Vital Signs Vital signs: Vital Signs Temp 98.8 F 06/21/18 11:40 Pulse 82 06/21/18 11:40 Resp 18 06/21/18 11:40 BP 99/62 06/21/18 11:40 Pulse Ox 96 06/21/18 11:40 Intake & Output 06/20/18 06/21/18 06/21/18 18:59 06:59 18:59 Intake Total 240 600 Balance 240 600 Weight 81.6 kg Intake: Oral 240 600 Other: Voiding Method Toilet Toilet # Voids 3 1 - Labs CBC & Chem 7: 06/21/18 06:28 06/21/18 06:28 Labs: Abnormal Lab Results - Last 24 Hours (Table) 06/21/18 06/21/18 Range/Units 06:28 06:28 WBC 11.9 H (3.8-10.6) k/uL MCHC 30.9 L (31.0-37.0) g/dL Neutrophils # 8.0 H (1.3-7.7) k/uL Chloride 109 H (98-107) mmol/L Glucose 108 H (74-99) mg/dL
--- NOTE | 2018-06-21 15:34 | P.DS ---
Providers Date of admission: 06/18/18 03:15 Expected date of discharge: 06/21/18 Attending physician: Patel Rosa Consults: 06/18/18 04:20 Consult Physician Routine Consulting Provider: [facility] Consult Reason/Comments: Post Interventional patient Do you want consulting provider notified?: Already Contacted 06/21/18 12:45 Consult Physician Routine Consulting Provider: Connor Dowd Consult Reason/Comments: read artrial US Do you want consulting provider notified?: Yes Primary care physician: [facility] Course: 68 years old female with past medical history of hyperlipidemia, hypertension, peripheral neuropathy. who presents because of chest pain, patient states that about one week she has episodes of chest pain which is resolved by itself. However last night around 11 PM she developed severe central chest pain radiating to the back, left arm, neck and jaw. Pain was progressive. Not associated with dyspnea or dizziness however she has some nausea without vomiting. On admission her troponin was 1.3, went up this morning to 39.1 this morning. EKG showing ST elevation myocardial infarction in leads 2, 3 and aVF. She has mild leukocytosis of 10.8 K, creatinine 1.1, sugar is 129-139. Patient underwent cardiac cath this morning she had 80% narrowing in the circumflex artery status post PCI. Echo showing ejection fraction 40-45% 06/20/2018 Patient is seen and evaluated at bedside for follow-up; patient admitted with inferior myocardial infarction and is status post stenting of the obtuse marginal branch of circumflex artery Vital signs remained stable; labs are reviewed and are stable Cardiology recommendations for ultrasound of both subclavian arteries for follow -up on right subclavian bruit in order to rule out subclavian stenosis Patient did have ultrasound subclavian arteries done with pending results which will be followed up as outpatient Patient Condition at Discharge: Critical Plan - Discharge Summary Discharge Rx Participant: Yes New Discharge Prescriptions: New Aspirin 81 mg PO DAILY chew Atorvastatin [Lipitor] 80 mg PO HS #90 tab Clopidogrel [Plavix] 75 mg PO DAILY #90 tab Nitroglycerin Sl Tabs [Nitrostat] 0.4 mg SUBLINGUAL Q5M PRN tab PRN Reason: Chest Pain Continue DULoxetine HCL [Cymbalta] 60 mg PO BID Oxybutynin Chloride [Oxybutynin Chloride ER] 15 mg PO DAILY Omeprazole 40 mg PO DAILY Metoprolol Tartrate [Lopressor] 12.5 mg PO BID Indomethacin [Indocin] 50 mg PO TID Discontinued Simvastatin [Zocor] 20 mg PO HS Discharge Medication List DULoxetine HCL [Cymbalta] 60 mg PO BID 06/18/18 [History] Indomethacin [Indocin] 50 mg PO TID 06/18/18 [History] Metoprolol Tartrate [Lopressor] 12.5 mg PO BID 06/18/18 [History] Omeprazole 40 mg PO DAILY 06/18/18 [History] Oxybutynin Chloride [Oxybutynin Chloride ER] 15 mg PO DAILY 06/18/18 [History] Aspirin 81 mg PO DAILY chew 06/21/18 [Rx] Atorvastatin [Lipitor] 80 mg PO HS #90 tab 06/21/18 [Rx] Clopidogrel [Plavix] 75 mg PO DAILY #90 tab 06/21/18 [Rx] Nitroglycerin Sl Tabs [Nitrostat] 0.4 mg SUBLINGUAL Q5M PRN tab 06/21/18 [Rx] Follow up Appointment(s)/Referral(s): Tiffanie Resendiz MD [STAFF PHYSICIAN] - 1 Week None,Stated [REFERRING] - 1-2 days Discharge Disposition: HOME SELF-CARE
== END 2018-06-21 17:01 | disposition home or self-care (01) | DRG 246 ==
LOC: EC 02:29 → 3SCARD 03:15 → 2SICU 04:13 → 3SCARD 06-20 21:07
PROVIDERS: ADMIT Hospitalist; ATTEND Hospitalist
PROC: 027135Z Dilation of Coronary Artery, Two Arteries with Two Drug-eluting Intraluminal Devices, Percutaneous Approach (ICD-10-PCS; principal; 2018-06-18 02:58)
PROC: 4A023N7 Measurement of Cardiac Sampling and Pressure, Left Heart, Percutaneous Approach (ICD-10-PCS; 2018-06-18 02:58)
PROC: B2111ZZ Fluoroscopy of Multiple Coronary Arteries using Low Osmolar Contrast (ICD-10-PCS; 2018-06-18 02:58)
DX: I21.19 ST elevation (STEMI) myocardial infarction involving other coronary artery of inferior wall (principal); I50.21 Acute systolic (congestive) heart failure; D72.829 Elevated white blood cell count, unspecified; E78.5 Hyperlipidemia, unspecified; F32.9 Major depressive disorder, single episode, unspecified; F41.9 Anxiety disorder, unspecified; I11.0 Hypertensive heart disease with heart failure; K21.9 Gastro-esophageal reflux disease without esophagitis; Z79.899 Other long term (current) drug therapy; Z82.49 Family history of ischemic heart disease and other diseases of the circulatory system; Z87.891 Personal history of nicotine dependence; I25.10 Atherosclerotic heart disease of native coronary artery without angina pectoris; Z98.49 Cataract extraction status, unspecified eye; G62.9 Polyneuropathy, unspecified
CPT/HCPCS: 36415; 80048; 80053; 82550; 82553; 83735; 84484; 85025; 85027; 85610; 85730; 93306; 93458; 93923; 99291; C1874

== ENCOUNTER → 2019-04-09 | Outpatient (CLI) | payer MEDICARE, OTHER ==
[2019-04-09 14:32] LABS: HCT 36.7 % (34.0-46.0); HGB 11.9 gm/dL (11.4-16.0); MCH 27.2 pg (25.0-35.0); MCHC 32.4 g/dL (31.0-37.0); Mean Platelet Volume 8.7; Platelet Count 326 k/uL (150-450); RBC 4.37 m/uL (3.80-5.40); RDW 14.2 % (11.5-15.5); WBC 11.9 k/uL (3.8-10.6)
[2019-04-09 14:48] LABS: Potassium 4.8 mmol/L (3.5-5.1)
== END | disposition home or self-care (01) ==
LOC: LABPAT 13:51
PROVIDERS: ATTEND Internal Medicine Interventional Cardiology
DX: Z01.812 Encounter for preprocedural laboratory examination (principal); I25.10 Atherosclerotic heart disease of native coronary artery without angina pectoris
CPT/HCPCS: 36415; 80051; 82565; 84520; 85027

== ENCOUNTER → 2019-04-16 | Day surgery (SDC) | payer MEDICARE, OTHER ==
[2019-04-14 11:41] VITALS: BMI 32.5
[~2019-04-16] MED LIST: IOPAMIDOL-370 100ML BTL INJ ONE; LIDOCAINE 1% INJ 10MG/ML (20 ML MDV) SQ ONE; MIDAZOLAM 2 MG/2 ML VIAL IV ONE; SODIUM CHLORIDE 0.9% 1,000 ML IV SCH
[2019-04-16 07:32] VITALS: RESP 16; TEMP 97.8
--- NOTE | 2019-04-16 11:00 | AN ---
ANGIOGRAPHY REPORT AORTIC ARCH ANGIOGRAM: DATE OF SERVICE: 04/16/2019 PERFORMING PHYSICIAN: Kalyan Arreaga MD. PROCEDURE PERFORMED: 1. An aortic arch angiogram. 2. Selective left subclavian angiogram. 3. Selective brachiocephalic angiogram. INDICATION: This is a very pleasant 68-year-old female patient who sees Dr. Resendiz in the office as an outpatient who was experiencing left arm discomfort with exertion concerning for intermittent claudication of the left upper extremity. Beside that, she has been experiencing episodes of dizziness and lightheadedness. She did have diminished left radial pulse. There was concerned about left subclavian stenosis and because of that, she was brought today to have an aortic arch and left subclavian angiogram. APPROACH: Right common femoral artery. COMPLICATION: None. LEVEL OF SEDATION: Moderate with sedation length of 20 minutes. PROCEDURE DESCRIPTION: After obtaining an informed consent, the patient was brought to the cardiac computer lab assistant. The right common femoral artery was cannulated using micropuncture technique and a micropuncture wire passed easily, then I placed a 5-[place] sheath 11 cm in the right common femoral artery. After that, I did an aortic arch angiogram using 5-[place] pigtail catheter. Selective left subclavian angiogram and selective brachiocephalic angiogram were performed using 5-[place] Real right catheter. The procedure was completed without any complication. SELECTIVE PERIPHERAL ANGIOGRAM: 1. The arch is a type 2 aortic arch. It does have mild disease only. It is calcified as well. It bifurcates into brachycephalic, left carotid, and left subclavian. 2. The left subclavian is heavily calcified in the ostial with critical lesion noted there. 3. The brachiocephalic is also extremely calcified with tight lesion there as well. CONCLUSION: 1. Type 2 aortic arch. 2. 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 3. Severe disease involving the brachiocephalic artery as well. POSTPROCEDURE MANAGEMENT: The patient will be scheduled to undergo [employer] and stenting of the left subclavian as well as the left radial cephalic. MMODL / IJN: [id number] /
[2019-04-16 12:23] VITALS: BP 122/58; PULSE 66
--- NOTE | 2019-04-16 13:47 | IR ---
EXAMINATION TYPE: IR angio aortic arch DATE OF EXAM: 04/16/2019 COMPARISON: NONE HISTORY: Left arm numbness Fluoroscopy support supplied to the referring clinician. See dictated report from cardiology, 3.9 mi nutes fluoroscopy time, 103 intraoperative images document the procedure
== END ==
LOC: CATHCVL 06:55
PROVIDERS: ATTEND Internal Medicine Interventional Cardiology
DX: I70.8 Atherosclerosis of other arteries (principal); I70.0 Atherosclerosis of aorta; I25.10 Atherosclerotic heart disease of native coronary artery without angina pectoris; E78.00 Pure hypercholesterolemia, unspecified; I95.1 Orthostatic hypotension; E78.5 Hyperlipidemia, unspecified; F17.210 Nicotine dependence, cigarettes, uncomplicated; F41.8 Other specified anxiety disorders; I10 Essential (primary) hypertension; I25.2 Old myocardial infarction; Z95.5 Presence of coronary angioplasty implant and graft; Z79.899 Other long term (current) drug therapy; Z79.82 Long term (current) use of aspirin; Z79.02 Long term (current) use of antithrombotics/antiplatelets; Z82.49 Family history of ischemic heart disease and other diseases of the circulatory system
CPT/HCPCS: 36223; 36225; C1769 ×4; C1894; J2250; J2001; Q9967

== ENCOUNTER → 2019-05-05 | Outpatient (CLI) | payer MEDICARE, OTHER ==
[2019-05-05 14:06] LABS: HCT 39.1 % (34.0-46.0); HGB 12.5 gm/dL (11.4-16.0); MCHC 31.9 g/dL (31.0-37.0); MCV 84.7 fL (80.0-100.0); Platelet Count 441 k/uL (150-450); RBC 4.62 m/uL (3.80-5.40); WBC 13.2 k/uL (3.8-10.6)
[2019-05-05 14:24] LABS: Potassium 5.4 mmol/L (3.5-5.1)
== END ==
LOC: LABPAT 13:17
PROVIDERS: ATTEND Internal Medicine Interventional Cardiology
DX: Z01.812 Encounter for preprocedural laboratory examination (principal); I77.1 Stricture of artery
CPT/HCPCS: 80051; 82565; 84520; 85027

== ENCOUNTER 2019-05-15 08:23 | Day surgery (SDC) | payer MEDICARE, OTHER ==
[2019-05-13 14:53] VITALS: BMI 33.5
[2019-05-15] MEDS ORDERED: SODIUM CHLORIDE 0.9% 1,000 ML IV ONE (08:43)
[2019-05-15 09:27] LABS: Basophils # (A) 0.2 k/uL (0-0.2); Basophils % (A) 1 %; Eosinophils # (A) 0.3 k/uL (0-0.7); Eosinophils % (A) 2 %; HCT 37.4 % (34.0-46.0); Lymphocytes # (A) 3.5 k/uL (1.0-4.8); Lymphocytes % (A) 20 %; MCH 27.3 pg (25.0-35.0); MCHC 32.2 g/dL (31.0-37.0); MCV 84.9 fL (80.0-100.0); Mean Platelet Volume 8.3; Monocytes # (A) 1.1 k/uL (0-1.0); Monocytes % (A) 6 %; Neutrophils # (A) 12.2 k/uL (1.3-7.7); Neutrophils % (A) 69 %; Platelet Count 425 k/uL (150-450); RBC 4.41 m/uL (3.80-5.40); RDW 14.4 % (11.5-15.5); WBC 17.6 k/uL (3.8-10.6)
[2019-05-15] MEDS: fentaNYL (PF) 50 MCG/ML 2 ML AMP IVP ONE ×2 (11:33→12:50)
[2019-05-15] MEDS ORDERED: MIDAZOLAM 2 MG/2 ML VIAL IVP ONE (11:33)
[2019-05-15] MEDS ORDERED: LIDOCAINE 1% INJ 10MG/ML (20 ML MDV) SQ ONE ×2 (11:34→12:21)
[2019-05-15] MEDS ORDERED: HEPARIN SODIUM 1,000 UN/ML (10ML VL) IV ONE (11:53)
[2019-05-15] MEDS: VERAPAMIL SYRINGE (5 MG/10 ML) INTRAARTER ONE ×2 (12:23→12:51)
[2019-05-15] MEDS ORDERED: HYDROmorphone 1 MG/ML 1 ML SYRINGE IVP ONE (12:35)
[2019-05-15] MEDS ORDERED: IOPAMIDOL-250 100ML BTL INTRAARTER ONE (12:52)
[2019-05-15] MEDS ORDERED: CLOPIDOGREL 75 MG TAB PO ONE (12:57)
--- NOTE | 2019-05-15 13:40 | IR ---
EXAMINATION TYPE: IR stent intravas non coronary DATE OF EXAM: 05/15/2019 COMPARISON: NONE HISTORY: Fluoroscopy time. Fluoroscopy was provided to the referring clinician.
[2019-05-15] MEDS: SODIUM CHLORIDE 0.9% 1,000 ML IV SCH ×2 (14:05→20:13)
[2019-05-15] MEDS ORDERED: ATROPINE SULFATE 0.1 MG/ML 10ML SYRINGE ONE (16:05)
[2019-05-15] MEDS: ATORVASTATIN 80 MG TAB PO SCH (20:12)
[2019-05-15] MEDS: DULoxetine HCL 60 MG CAPSULE.DR PO SCH (20:12)
[2019-05-15] MEDS: METOPROLOL TARTRATE 12.5 MG TAB PO SCH (20:12)
[2019-05-16] MEDS: PANTOPRAZOLE 40 MG TABLET PO SCH (06:36)
[2019-05-16 07:00] LABS: Basophils # (A) 0.1 k/uL (0-0.2); Basophils % (A) 1 %; Eosinophils # (A) 0.2 k/uL (0-0.7); Eosinophils % (A) 2 %; HCT 33.1 % (34.0-46.0); HGB 10.6 gm/dL (11.4-16.0); Lymphocytes # (A) 1.9 k/uL (1.0-4.8); Lymphocytes % (A) 16 %; MCHC 32.1 g/dL (31.0-37.0); MCV 84.3 fL (80.0-100.0); Monocytes # (A) 0.9 k/uL (0-1.0); Monocytes % (A) 7 %; Neutrophils # (A) 8.6 k/uL (1.3-7.7); Neutrophils % (A) 73 %; Platelet Count 304 k/uL (150-450); RBC 3.93 m/uL (3.80-5.40); RDW 14.6 % (11.5-15.5); WBC 11.7 k/uL (3.8-10.6)
[2019-05-16 07:03] LABS: Potassium 4.5 mmol/L (3.5-5.1); Total Bilirubin 0.5 mg/dL (0.2-1.3); Total Protein 5.6 g/dL (6.3-8.2)
[2019-05-16] MEDS: CLOPIDOGREL 75 MG TAB PO SCH (07:51)
[2019-05-16] MEDS: DULoxetine HCL 60 MG CAPSULE.DR PO SCH ×2 (07:51→20:13)
[2019-05-16] MEDS: METOPROLOL TARTRATE 12.5 MG TAB PO SCH ×2 (07:51→20:14)
[2019-05-16] MEDS: ASPIRIN 81 MG PO SCH (07:51)
[2019-05-16] MEDS: OXYBUTYNIN 15 MG TAB.ER.24 PO SCH (07:51)
--- NOTE | 2019-05-16 10:46 | PN ---
PROGRESS NOTE DATE OF SERVICE: May 16, 2019. This is a very pleasant 68-year-old female patient who sees Dr. Resendzi in the office as an outpatient who underwent yesterday successful stenting of the left subclavian artery for symptomatic left arm intermittent claudication associated with dizziness. The procedure was performed from the right groin as well as left radial approach. Both sides are looking good. I can feel excellent left radial pulse. I am going to keep the patient 1 more day. She is from an hour driving from here and she cannot drive with this snowstorm outside. Meanwhile, I will continue dual antiplatelet therapy and discharge her tomorrow morning. MMODL / IJN: [id number] /
[2019-05-16] MEDS ORDERED: HYDROmorphone 0.5 MG/0.5 ML SYRINGE IVP PRN (16:59)
[2019-05-16] MEDS: ATORVASTATIN 80 MG TAB PO SCH (20:13)
[2019-05-16] MEDS: SODIUM CHLORIDE 0.9% 1,000 ML IV SCH ×2 (21:37→21:38)
[2019-05-17] MEDS: SODIUM CHLORIDE 0.9% 1,000 ML IV SCH (05:59)
[2019-05-17] MEDS: PANTOPRAZOLE 40 MG TABLET PO SCH (06:34)
[2019-05-17] MEDS: DULoxetine HCL 60 MG CAPSULE.DR PO SCH (08:31)
[2019-05-17] MEDS: ASPIRIN 81 MG PO SCH (08:31)
[2019-05-17] MEDS: CLOPIDOGREL 75 MG TAB PO SCH (08:31)
[2019-05-17] MEDS: METOPROLOL TARTRATE 12.5 MG TAB PO SCH (08:31)
[2019-05-17] MEDS: OXYBUTYNIN 15 MG TAB.ER.24 PO SCH (08:31)
--- NOTE | 2019-05-17 08:41 | AN ---
ANGIOGRAPHY REPORT DATE OF SERVICE: May 15, 2019. PERFORMING PHYSICIAN: Kalyan Arreaga MD. PROCEDURE PERFORMED: 1. Selective left subclavian angiogram. 2. Successful stenting of the proximal left subclavian using 8.0 x 39 mm Absolute Pro balloon expandable stent with an excellent angiographic results and reduction of stenosis from 99% to 0%. INDICATION: This is a pleasant 68-year-old female patient who sees Dr. Resendiz in the office on a regular basis with coronary artery disease who was experiencing left arm intermittent claudication as well as intermittent episodes of dizziness and lightheadedness. She did have diminished left radial pulse. She underwent an angiogram which revealed severe disease involving the left subclavian artery and severe disease involving the brachiocephalic artery. She was brought today to undergo stenting of the left subclavian artery. APPROACH: 1. Right common femoral artery. 2. Left radial artery. COMPLICATION: None. LEVEL OF SEDATION: Moderate with sedation length of 88 minutes. PROCEDURE DESCRIPTION: After obtaining an informed consent, the patient was brought to the cardiac dental laboratory supervisor. The right common femoral artery was cannulated using micropuncture technique and a micropuncture wire passed easily. Then I placed a 6-[place] Island[place] sheath in the right groin. I attempted crossing the left subclavian artery from antegrade approach, but I was unable because I did not have a good guide support. Because of that, I aborted the right groin approach and I decided to go from the arm. The left radial artery was cannulated using micropuncture technique, the micropuncture wire passed easily. Then I placed a 70 cm 6-[place] Island[place] sheath in the left radial artery after I crossed the left subclavian in retrograde fashion. After that, I did start anticoagulation with heparin. After that I did balloon angioplasty using 6 x 20 mm balloon before I deployed 8 x 38 mm Absolute Pro balloon expandable stent where the stent was positioned under fluoroscopy guidance and deployed under fluoroscopy guidance. The following angiogram showed excellent angiographic results and the procedure was completed without any complication. POSTPROCEDURE MANAGEMENT: 1. Dual anti-platelet therapy. 2. Risk factors modifications. 3. The patient will be scheduled to undergo stenting of the brachiocephalic with filter protection of the right carotid artery. MMODL / IJN: [id number] /
[2019-05-17 08:43] VITALS: BP 92/58; RESP 18; TEMP 98.3
[2019-05-17 09:11] VITALS: PULSE 75
--- NOTE | 2019-05-17 10:17 | P.DS ---
Providers Date of admission: May 152019 Attending physician: Kalyan Arreaga Primary care physician: [facility] Course: This is a 68-year-old female patient was in 2 days ago successful stenting of the left subclavian with an excellent angiographic results and without any complication from right groin and left arm approach. The patient was kept one additional day because the weather was so bad yesterday and she is from [facility]. She was seen today. She is doing good from a cardiac vascular standpoint of view. The patient will be discharged home on dual antiplatelet therapy as well as a statin and I will follow-up with the patient next week in the office where I will schedule her to undergo stenting of the brachiocephalic artery. Plan - Discharge Summary Discharge Rx Participant: Yes New Discharge Prescriptions: No Action DULoxetine HCL [Cymbalta] 60 mg PO BID Oxybutynin Chloride [Oxybutynin Chloride ER] 15 mg PO DAILY Omeprazole 40 mg PO DAILY Metoprolol Tartrate [Lopressor] 12.5 mg PO BID Indomethacin [Indocin] 50 mg PO TID Aspirin 81 mg PO DAILY chew Atorvastatin [Lipitor] 80 mg PO HS #90 tab Clopidogrel [Plavix] 75 mg PO DAILY #90 tab Nitroglycerin Sl Tabs [Nitrostat] 0.4 mg SUBLINGUAL Q5M PRN tab PRN Reason: Chest Pain Discharge Medication List DULoxetine HCL [Cymbalta] 60 mg PO BID 06/18/18 [History] Indomethacin [Indocin] 50 mg PO TID 06/18/18 [History] Metoprolol Tartrate [Lopressor] 12.5 mg PO BID 06/18/18 [History] Omeprazole 40 mg PO DAILY 06/18/18 [History] Oxybutynin Chloride [Oxybutynin Chloride ER] 15 mg PO DAILY 06/18/18 [History] Aspirin 81 mg PO DAILY chew 06/21/18 [Rx] Atorvastatin [Lipitor] 80 mg PO HS #90 tab 06/21/18 [Rx] Clopidogrel [Plavix] 75 mg PO DAILY #90 tab 06/21/18 [Rx] Nitroglycerin Sl Tabs [Nitrostat] 0.4 mg SUBLINGUAL Q5M PRN tab 06/21/18 [Rx] Follow up Appointment(s)/Referral(s): Kalyan Arreaga MD [STAFF PHYSICIAN] - 1 Week (Please call office on Saturday to schedule a hospital follow up appointment for your procedure. ) Patient Instructions/Handouts: Angiography (DC) Activity/Diet/Wound Care/Special Instructions: Catheterization precautions: 1. Support your puncture site by applying firm, steady pressure whenever you cough, laugh, sneeze or bear down to have a bowel movement (2-day restriction). 2. Watch for any excessive bruising, active bleeding, a firm knot forming under your skin, extreme tenderness and signs of infection (redness, swelling, fever). 3. Shower daily, do not soak puncture in a tub bath, jacuzzi, pool, schwartz etc. for 1 week. This is to prevent risk of infection. 4. Drink plenty of fluids the day of and day after your procedure to flush contrast dye out of your kidneys. 5. Take all medications as directed. Never stop any new medication without your physicians OK. 6. No driving for 2 days after procedure. 7. 10- pound weight lifting restriction for 1 week. 8. Low sodium/low fat diet. 9. Activity limited until follow up appointment with your eyeglass maker. In case of any problems, please call [facility], [facility] @ [phone].
== END 2019-05-17 10:50 | disposition home or self-care (01) ==
LOC: CATHCVL 08:23 → 3SCARD 12:55 → CATHCVL 05-17 10:50
PROVIDERS: ATTEND Internal Medicine Interventional Cardiology
DX: I70.218 Atherosclerosis of native arteries of extremities with intermittent claudication, other extremity (principal); I10 Essential (primary) hypertension; I25.10 Atherosclerotic heart disease of native coronary artery without angina pectoris; E78.5 Hyperlipidemia, unspecified; I25.2 Old myocardial infarction; Z87.891 Personal history of nicotine dependence; Z95.5 Presence of coronary angioplasty implant and graft; Z82.49 Family history of ischemic heart disease and other diseases of the circulatory system; Z79.02 Long term (current) use of antithrombotics/antiplatelets; Z79.82 Long term (current) use of aspirin; Z79.899 Other long term (current) drug therapy
CPT/HCPCS: 37236; 85347; 80053; 84132; 85025 ×2; C1769 ×7; C1887; C1894 ×3; C1725; C1876; J2250; J2001; J3010; J1644; J1170 ×2; Q9966

== ENCOUNTER 2019-06-22 07:57 | Day surgery (SDC) | payer MEDICARE, OTHER ==
[2019-06-17 13:38] VITALS: BMI 31.7
[~2019-06-22 07:57] MED LIST changes: +ALPRAZolam 0.5 MG TAB PO PRN; +ASPIRIN 325 MG TAB PO ONE; -IOPAMIDOL-370 100ML BTL INJ ONE; -LIDOCAINE 1% INJ 10MG/ML (20 ML MDV) SQ ONE; -MIDAZOLAM 2 MG/2 ML VIAL IV ONE; -SODIUM CHLORIDE 0.9% 1,000 ML IV SCH; +SODIUM CHLORIDE 0.9% 1,000 ML in EMPTY BAG 1 BAG IV ONE
[2019-06-22 08:35] LABS: Basophils # (A) 0.1 k/uL (0-0.2); Basophils % (A) 1 %; Eosinophils # (A) 0.3 k/uL (0-0.7); Eosinophils % (A) 2 %; HCT 35.9 % (34.0-46.0); HGB 11.5 gm/dL (11.4-16.0); Lymphocytes # (A) 3.1 k/uL (1.0-4.8); Lymphocytes % (A) 26 %; MCH 26.3 pg (25.0-35.0); MCHC 32.2 g/dL (31.0-37.0); MCV 81.8 fL (80.0-100.0); Mean Platelet Volume 8.2; Monocytes # (A) 0.9 k/uL (0-1.0); Monocytes % (A) 7 %; Neutrophils # (A) 7.4 k/uL (1.3-7.7); Neutrophils % (A) 61 %; Platelet Count 372 k/uL (150-450); RBC 4.39 m/uL (3.80-5.40); RDW 14.7 % (11.5-15.5); WBC 12.2 k/uL (3.8-10.6)
[2019-06-22 08:43] LABS: Calcium 9.2 mg/dL (8.4-10.2); Potassium 4.4 mmol/L (3.5-5.1)
[2019-06-22] MEDS ORDERED: LIDOCAINE 1% INJ 10MG/ML (20 ML MDV) SQ ONE (11:07)
[2019-06-22] MEDS: VERAPAMIL SYRINGE (5 MG/10 ML) INTRAARTER ONE ×2 (11:10→11:39)
[2019-06-22] MEDS ORDERED: IOPAMIDOL-370 100ML BTL INJ ONE (11:44)
[2019-06-22] MEDS ORDERED: CLOPIDOGREL 75 MG TAB PO ONE (11:44)
[2019-06-22] MEDS ORDERED: NITROGLYCERIN SL TABS 0.4 MG TAB SUBLINGUAL PRN (11:46)
[2019-06-22] MEDS ORDERED: SODIUM CHLORIDE 0.9% 1,000 ML in EMPTY BAG 1 BAG IV SCH (12:00)
--- NOTE | 2019-06-22 15:08 | AN ---
ANGIOGRAPHY REPORT DATE OF SERVICE: 06/22/2019 PERFORMING PHYSICIAN: Kalyan Arreaga MD. PROCEDURE PERFORMED: 1. Selective brachiocephalic angiogram. 2. Successful stenting of the patent cephalic artery using 8 x 19 and 9 x 19 mm Absolute Pro balloon expandable stent with an excellent angiographic results and reduction of stenosis from 99% to 0%. INDICATION: This is a 69-year-old female patient who was experiencing symptoms of dizziness and lightheadedness as well as right arm discomfort. She underwent an aortic arch angiogram which revealed critical disease involving the brachiocephalic artery. Because of that, she was brought today to undergo an intervention. APPROACH: Right radial artery. COMPLICATION: None. LEVEL OF SEDATION: Moderate with sedation length of 38 minutes. PROCEDURE DESCRIPTION: After obtaining an informed consent, the patient was brought to the cardiac union laborer. The right radial artery was cannulated using micropuncture technique, the micropuncture wire passed easily, then I placed a 6-Malagasy 11 cm sheath in the radial artery. At that point, anticoagulation was initiated using heparin and the patient was given a total of 10,000 units of heparin IV. Subsequently, I did I did cross the lesion in the brachiocephalic artery using a 0.035 [place] Advantage wire. After that, I did exchange my short 11 cm sheath into 70 cm 6- Malagasy Raabe sheath using the 0.035 [place] Advantage wire. The tip of the sheath was positioned just by the lesion at the brachiocephalic artery. After that, I did direct stenting of the lesion using 8 x 19 mm Absolute Pro balloon expandable stent where the stent was positioned under fluoroscopy guidance and deployed under 14 atmospheres. The following angiogram showed that the proximal edge of the stent was barely covering the plaque and because of that I decided to cover that with another stent. I deployed 9 x 19 mm another absolute Pro balloon expandable stent where the stent was positioned with overlap between this stent and the previous stent and the second stent was deployed under 14 atmospheres. The following angiogram showed excellent angiographic results and the procedure was completed without any complication. POSTPROCEDURE MANAGEMENT: 1. Dual anti-platelet therapy. 2. Risk factor modifications. 3. Follow up with the patient. MMODL / IJN: [id number] /
--- NOTE | 2019-06-22 16:48 | IR ---
Fluoroscopy HISTORY: Right subclavian stenosis 0.9 minutes fluoroscopy time supplied to the referring clinician. 347 intraoperative C-arm images do cument the procedure. See dictated report from cardiology.
[2019-06-22] MEDS: INDOMETHACIN 25 MG CAP PO SCH ×2 (18:24→20:36)
[2019-06-22] MEDS: DULoxetine HCL 60 MG CAPSULE.DR PO SCH (20:34)
[2019-06-22] MEDS: METOPROLOL TARTRATE 12.5 MG TAB PO SCH (20:34)
[2019-06-22] MEDS ORDERED: ATORVASTATIN 80 MG TAB PO SCH (21:00)
[2019-06-23 05:40] VITALS: TEMP 98
[2019-06-23 06:10] LABS: Basophils # (A) 0.1 k/uL (0-0.2); Basophils % (A) 1 %; Eosinophils # (A) 0.2 k/uL (0-0.7); Eosinophils % (A) 2 %; Lymphocytes # (A) 2.2 k/uL (1.0-4.8); Lymphocytes % (A) 28 %; MCH 26.3 pg (25.0-35.0); MCHC 31.9 g/dL (31.0-37.0); MCV 82.4 fL (80.0-100.0); Mean Platelet Volume 8.3; Monocytes # (A) 0.6 k/uL (0-1.0); Monocytes % (A) 7 %; Neutrophils # (A) 4.5 k/uL (1.3-7.7); Neutrophils % (A) 59 %; Platelet Count 310 k/uL (150-450); RBC 3.76 m/uL (3.80-5.40); RDW 14.9 % (11.5-15.5); WBC 7.6 k/uL (3.8-10.6)
[2019-06-23 06:17] LABS: HGB 9.9 gm/dL (11.4-16.0)
[2019-06-23 06:24] LABS: Calcium 8.7 mg/dL (8.4-10.2); Potassium 4.6 mmol/L (3.5-5.1)
[2019-06-23] MEDS ORDERED: PANTOPRAZOLE 40 MG TABLET PO SCH (07:30)
[2019-06-23] MEDS ORDERED: CLOPIDOGREL 75 MG TAB PO SCH (09:00)
[2019-06-23] MEDS ORDERED: ASPIRIN 81 MG PO SCH (09:00)
[2019-06-23] MEDS ORDERED: OXYBUTYNIN 15 MG TAB.ER.24 PO SCH (09:00)
[2019-06-23] MEDS: INDOMETHACIN 25 MG CAP PO SCH (09:17)
[2019-06-23] MEDS: METOPROLOL TARTRATE 12.5 MG TAB PO SCH (09:18)
[2019-06-23] MEDS: DULoxetine HCL 60 MG CAPSULE.DR PO SCH (09:18)
[2019-06-23 10:47] VITALS: BP 115/55; PULSE 71; RESP 17
--- NOTE | 2019-06-23 23:56 | DS ---
DISCHARGE SUMMARY DATE OF ADMISSION: 06/22/2019 DATE OF DISCHARGE: 06/23/2019 BRIEF HISTORY: This is a very pleasant 69-year-old female patient who follows with Dr. Rayshawn Resendiz in the office on a regular basis. She was diagnosed recently with critical stenosis involving the brachiocephalic artery causing her to have symptoms of dizziness and lightheadedness and right arm discomfort. She underwent yesterday successful stenting of the brachiocephalic using a balloon- expandable stent with an excellent angiographic result from right radial approach. She was seen today morning. Her right radial site is good, without any hematoma or bruises, with excellent pulse. Elana is going to be discharged home later on today. MMODL / IJN: [id number] /
== END 2019-06-23 11:10 | disposition home or self-care (01) ==
LOC: CATHCVL 07:57 → 3SCARD 11:43 → CATHCVL 06-23 11:10
PROVIDERS: ATTEND Internal Medicine Interventional Cardiology
DX: I70.8 Atherosclerosis of other arteries (principal); I25.10 Atherosclerotic heart disease of native coronary artery without angina pectoris; I10 Essential (primary) hypertension; Z87.891 Personal history of nicotine dependence; E78.5 Hyperlipidemia, unspecified; I25.2 Old myocardial infarction; E78.00 Pure hypercholesterolemia, unspecified; F41.8 Other specified anxiety disorders; Z82.49 Family history of ischemic heart disease and other diseases of the circulatory system; Z95.5 Presence of coronary angioplasty implant and graft; Z95.820 Peripheral vascular angioplasty status with implants and grafts; Z79.02 Long term (current) use of antithrombotics/antiplatelets; Z79.82 Long term (current) use of aspirin; Z79.899 Other long term (current) drug therapy
CPT/HCPCS: 37236; 85347; 80048 ×2; 85025 ×2; C1894 ×2; C1876; C1769 ×4; J2001; J1644; Q9967

== ENCOUNTER → 2019-11-09 | Outpatient (CLI) | payer MEDICARE, OTHER ==
[2019-11-09 12:26] LABS: HCT 34.5 % (34.0-46.0); HGB 10.8 gm/dL (11.4-16.0); Hypochromasia Marked; MCH 24.9 pg (25.0-35.0); MCHC 31.3 g/dL (31.0-37.0); MCV 79.6 fL (80.0-100.0); Mean Platelet Volume 7.4; Platelet Count 381 k/uL (150-450); RBC 4.34 m/uL (3.80-5.40); RDW 15.8 % (11.5-15.5); WBC 15.4 k/uL (3.8-10.6)
[2019-11-09 12:43] LABS: Potassium 4.8 mmol/L (3.5-5.1)
== END | disposition home or self-care (01) ==
LOC: LABPAT 10:56
PROVIDERS: ATTEND Internal Medicine Interventional Cardiology
DX: Z01.818 Encounter for other preprocedural examination (principal); I70.213 Atherosclerosis of native arteries of extremities with intermittent claudication, bilateral legs
CPT/HCPCS: 36415; 80051; 82565; 84520; 85027

== ENCOUNTER 2019-11-16 07:27 | Day surgery (SDC) | payer MEDICARE, OTHER ==
[2019-11-12 15:57] VITALS: BMI 29.0
[~2019-11-16 07:27] MED LIST changes: -ALPRAZolam 0.5 MG TAB PO PRN; -ASPIRIN 325 MG TAB PO ONE
[2019-11-16 07:54] VITALS: RESP 16; TEMP 98.1
[2019-11-16] MEDS ORDERED: SODIUM CHLORIDE 0.9% 1,000 ML IV ONE (07:54)
[2019-11-16 08:10] LABS: Anisocytosis Slight; Basophils # (A) 0.1 k/uL (0-0.2); Basophils % (A) 1 %; Eosinophils # (A) 0.3 k/uL (0-0.7); Eosinophils % (A) 2 %; HCT 36.2 % (34.0-46.0); HGB 11.7 gm/dL (11.4-16.0); Hypochromasia Moderate; Lymphocytes # (A) 4.3 k/uL (1.0-4.8); Lymphocytes % (A) 21 %; MCHC 32.3 g/dL (31.0-37.0); MCV 77.3 fL (80.0-100.0); Mean Platelet Volume 7.4; Microcytosis Slight; Monocytes # (A) 1.4 k/uL (0-1.0); Monocytes % (A) 7 %; Neutrophils # (A) 13.5 k/uL (1.3-7.7); Neutrophils % (A) 67 %; Platelet Count 410 k/uL (150-450); RBC 4.68 m/uL (3.80-5.40); RDW 16.3 % (11.5-15.5); WBC 20.1 k/uL (3.8-10.6)
[2019-11-16] MEDS ORDERED: MIDAZOLAM 2 MG/2 ML VIAL IVP ONE (08:43)
[2019-11-16] MEDS ORDERED: LIDOCAINE 1% INJ 10MG/ML (20 ML MDV) SQ ONE (08:46)
[2019-11-16] MEDS ORDERED: IOPAMIDOL-370 100ML BTL INJ ONE (09:03)
[2019-11-16] MEDS ORDERED: SODIUM CHLORIDE 0.9% 1,000 ML IV SCH (09:15)
--- NOTE | 2019-11-16 09:38 | AN ---
ANGIOGRAPHY REPORT DATE OF SERVICE: 11/16/2019 PERFORMING PHYSICIAN: Kalyan Arreaga MD. PROCEDURE PERFORMED: 1. An abdominal aortogram. 2. Bilateral lower extremity runoff. INDICATION: This is a 69-year-old female patient with peripheral arterial disease, as well as coronary artery disease, as well as hypertension and dyslipidemia who was experiencing right lower extremity intermittent claudication. APPROACH: Right common femoral artery. COMPLICATION: None. LEVEL OF SEDATION: Moderate with sedation length of 18 minutes. PROCEDURE DESCRIPTION: After obtaining an informed consent, the patient was brought to the cardiac laboratory animal caretaker. The right common femoral artery was cannulated using micropuncture technique, the micropuncture wire passed easily then I placed a 5-Spanish sheath at the right common femoral artery. After that I did an aortogram with runoff using a power injection and digital subtraction. The procedure was completed without any complication. SELECTIVE PERIPHERAL ANGIOGRAM: 1. The aorta appeared to be calcified with mild disease only. 2. Common iliac arteries. The ostial of the right common iliac artery appeared to have mild disease only. The left common iliac artery appeared to have mild disease only. 3. Internal iliac arteries both are patent. 4. External iliac arteries both are normal. 5. Common femoral arteries both appeared to be angiographically normal. 6. The profundus appeared to be patent bilaterally. 7. The right SFA appeared to have a tight lesion in the ostium all the way down to the mid and distal portion. The left SFA appeared to have mild disease only. 8. Both popliteals appeared to be patent. 9. Three vessel runoff below the knee bilaterally. CONCLUSION: 1. Intermediate disease involving the ostial right common iliac artery. 2. Severe disease involving the right superficial femoral artery. POSTPROCEDURE MANAGEMENT: 1. DIRECTOR CALL CENTER SALES of the right SFA. 2. Also I would assess for a gradient across the ostial of the right common iliac artery. MMODL / IJN: [id number] /
--- NOTE | 2019-11-16 09:43 | IR ---
Fluoroscopy HISTORY: Pain in left leg 1.3 minutes fluoroscopy time supplied to the referring clinician. 177 intraoperative C-arm images do cument the procedure. See dictated report from cardiology.
[2019-11-16] MEDS ORDERED: HYDROmorphone 0.5 MG/0.5 ML SYRINGE IVP PRN (10:15)
[2019-11-16] MEDS ORDERED: HYDROmorphone 1 MG/ML 1 ML SYRINGE ONE ×2 (10:26→13:44)
[2019-11-16 11:32] VITALS: PULSE 68
[2019-11-16 14:15] VITALS: BP 143/71
== END 2019-11-16 16:06 | disposition home or self-care (01) ==
LOC: CATHCVL 07:27
PROVIDERS: ATTEND Internal Medicine Interventional Cardiology
DX: I73.9 Peripheral vascular disease, unspecified (principal); I70.0 Atherosclerosis of aorta; I77.89 Other specified disorders of arteries and arterioles; I25.10 Atherosclerotic heart disease of native coronary artery without angina pectoris; I10 Essential (primary) hypertension; E78.5 Hyperlipidemia, unspecified; I70.8 Atherosclerosis of other arteries; R53.83 Other fatigue; R06.02 Shortness of breath; R07.89 Other chest pain; R94.39 Abnormal result of other cardiovascular function study; I25.2 Old myocardial infarction; F41.8 Other specified anxiety disorders; E78.00 Pure hypercholesterolemia, unspecified; I77.1 Stricture of artery; Z87.891 Personal history of nicotine dependence; Z95.820 Peripheral vascular angioplasty status with implants and grafts; Z82.49 Family history of ischemic heart disease and other diseases of the circulatory system; Z79.899 Other long term (current) drug therapy; Z79.82 Long term (current) use of aspirin; Z79.02 Long term (current) use of antithrombotics/antiplatelets; Z98.61 Coronary angioplasty status
CPT/HCPCS: 36200; 75716; 75625; 85025; C1894; C1769 ×3; J2250; J2001; J1170; Q9967

== ENCOUNTER → 2019-12-02 | Outpatient (CLI) | payer MEDICARE, OTHER ==
[2019-12-02 14:17] LABS: Anisocytosis Slight; HCT 34.4 % (34.0-46.0); HGB 10.6 gm/dL (11.4-16.0); Hypochromasia Moderate; MCH 24.4 pg (25.0-35.0); MCHC 30.8 g/dL (31.0-37.0); MCV 79.2 fL (80.0-100.0); Mean Platelet Volume 8.3; Platelet Count 388 k/uL (150-450); RBC 4.34 m/uL (3.80-5.40); RDW 16.2 % (11.5-15.5); WBC 12.5 k/uL (3.8-10.6)
[2019-12-02 14:27] LABS: Potassium 4.3 mmol/L (3.5-5.1)
== END | disposition home or self-care (01) ==
LOC: LABPAT 13:19
PROVIDERS: ATTEND Internal Medicine Interventional Cardiology
DX: Z01.818 Encounter for other preprocedural examination (principal); I73.9 Peripheral vascular disease, unspecified; E78.5 Hyperlipidemia, unspecified
CPT/HCPCS: 36415; 80051; 82565; 82947; 84520; 85027

== ENCOUNTER 2019-12-16 07:58 | Day surgery (SDC) | payer MEDICARE, OTHER ==
[2019-12-10 08:23] VITALS: BMI 31.5
[~2019-12-16 07:58] MED LIST changes: +ALPRAZolam 0.25 MG TAB PO PRN; +ASPIRIN 325 MG TAB PO STA
[2019-12-16] MEDS ORDERED: ALPRAZolam 0.5 MG TAB ONE (08:08)
[2019-12-16] MEDS ORDERED: METOPROLOL TARTRATE 12.5 MG TAB PO STA (08:15)
[2019-12-16] MEDS ORDERED: MIDAZOLAM 2 MG/2 ML VIAL IV ONE (09:59)
[2019-12-16] MEDS ORDERED: LIDOCAINE 1% INJ 10MG/ML (20 ML MDV) SQ ONE (10:00)
[2019-12-16] MEDS: SODIUM CHLORIDE 0.9% 500 ML 500 ML with niCARdipine 6.25 MG, NITROGLYCERIN-D5W PMX 0.05... IV ONE ×8 (10:05→11:19)
[2019-12-16] MEDS ORDERED: HEPARIN SODIUM 1,000 UN/ML (10ML VL) IV ONE (10:06)
[2019-12-16] MEDS: MIDAZOLAM 2 MG/2 ML VIAL IV ONE ×2 (10:53→11:10)
[2019-12-16] MEDS ORDERED: IOPAMIDOL-250 100ML BTL INTRAARTER ONE (11:21)
[2019-12-16] MEDS ORDERED: NITROGLYCERIN SL TABS 0.4 MG TAB SUBLINGUAL PRN (11:26)
[2019-12-16] MEDS ORDERED: CLOPIDOGREL 75 MG TAB PO ONE (11:28)
[2019-12-16] MEDS ORDERED: SODIUM CHLORIDE 0.9% 1,000 ML IV SCH (11:30)
--- NOTE | 2019-12-16 11:49 | IR ---
EXAMINATION TYPE: IR stent intravas non coronary DATE OF EXAM: 12/16/2019 COMPARISON: NONE HISTORY: Fluoroscopy time. Fluoroscopy was provided to the referring clinician.
[2019-12-16] MEDS: METOPROLOL TARTRATE 12.5 MG TAB PO SCH (20:39)
[2019-12-16] MEDS ORDERED: ATORVASTATIN 80 MG TAB PO SCH (21:00)
--- NOTE | 2019-12-17 03:49 | AN ---
ANGIOGRAPHY REPORT PERCUTANEOUS PERIPHERAL INTERVENTION DATE OF SERVICE: December 16, 2019 PERFORMING PHYSICIAN: Kalyan Arreaga MD. PROCEDURE PERFORMED: 1. Successful stenting of the right SFA using 7.0 x 40 mm Zilver PTX drug-coated stent with an excellent angiographic result. 2. Atherectomy of the right SFA using the orbital atherectomy device from [facility] and using 1.5 mm ana. 3. Intravascular ultrasound, IVUS, of the right SFA and right popliteal and right common femoral artery. 4. Right lower extremity angiogram. INDICATION: This is a 69-year-old female patient who was experiencing right lower extremity intermittent claudication and underwent an angiogram which revealed occluded right SFA. She was brought today to undergo an intervention. APPROACH: Right anterior tibial artery in a pedal approach. COMPLICATION: None. LEVEL OF SEDATION: Moderate with sedation length of 80 minutes. PROCEDURE DESCRIPTION: After obtaining an informed consent, the patient was brought to the cardiac phlebotomist lab assistant. The right anterior tibial artery was cannulated using micropuncture technique under ultrasound guidance, the micropuncture wire passed easily then I placed a slender 5/6- Azerbaijani sheath at the right anterior tibial artery. Right lower extremity angiogram was performed and revealed 3-vessel runoff below the knee with occluded right SFA at the ostium and proximal portion. After the right pedal sheath was placed, I did cocktail infusion consistent of heparin as well as verapamil as well as nitroglycerin. Anticoagulation also was achieved with heparin with a weight based and continuous ACT monitoring throughout the procedure. 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 Then I did advance the CXI over the wire to the right common femoral artery where I did injection through the catheter to prove that I was in the true lumen. After that I did intravascular ultrasound, IVUS, of the right SFA to prove that I was in the true lumen and also to get a diameter of the SFA which came in to be at 5.5 mm. Balloon angioplasty was performed using 5 mm balloon with the following angiogram showing flow limiting dissection which I decided to cover with a stent. I deployed a 7.0 x 40 mm Zilver PTX drug-coated stent where the stent was positioned under fluoroscopy guidance and deployed under fluoroscopic guidance. I post-dilated the stent using 6 mm balloon with the following angiogram showing excellent angiographic results and the procedure was completed without any complication. POSTPROCEDURE MANAGEMENT: 1. Dual anti-platelet therapy. 2. Risk factor modifications. 3. Follow up with the patient. CHIP / HERMINIA: [id number] /
[2019-12-17] MEDS ORDERED: PANTOPRAZOLE 40 MG TABLET PO SCH (07:30)
[2019-12-17 08:16] VITALS: BP 186/61; PULSE 82; RESP 16; TEMP 98.1
[2019-12-17] MEDS ORDERED: CLOPIDOGREL 75 MG TAB PO SCH (09:00)
[2019-12-17] MEDS ORDERED: OXYBUTYNIN 15 MG TAB.ER.24 PO SCH (09:00)
[2019-12-17] MEDS ORDERED: DULoxetine HCL 60 MG CAPSULE.DR PO SCH (09:00)
[2019-12-17] MEDS ORDERED: ASPIRIN 81 MG PO SCH (09:00)
[2019-12-17] MEDS: METOPROLOL TARTRATE 12.5 MG TAB PO SCH (09:22)
--- NOTE | 2019-12-17 12:11 | P.DS ---
Providers Date of admission: December 152019 Attending physician: Kalyan Arreaga Primary care physician: [facility] Course: This is a 69-year-old female patient who sees Dr. 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 The patient was seen this morning. She is asymptomatic. She has a great dorsalis pedis pulse. She is going to be discharged home on dual antiplatelet therapy and I'll follow- up with the patient in the office and she sees Dr. Resendiz after that. Plan - Discharge Summary Discharge Rx Participant: No New Discharge Prescriptions: No Action DULoxetine HCL [Cymbalta] 60 mg PO QAM Oxybutynin Chloride [Oxybutynin Chloride ER] 15 mg PO QAM Omeprazole 40 mg PO QAM Metoprolol Tartrate [Lopressor] 12.5 mg PO BID Atorvastatin [Lipitor] 80 mg PO HS #90 tab Nitroglycerin Sl Tabs [Nitrostat] 0.4 mg SUBLINGUAL Q5M PRN tab PRN Reason: Chest Pain Clopidogrel [Plavix] 75 mg PO QAM Aspirin 81 mg PO QAM Discharge Medication List DULoxetine HCL [Cymbalta] 60 mg PO QAM 06/18/18 [History] Metoprolol Tartrate [Lopressor] 12.5 mg PO BID 06/18/18 [History] Omeprazole 40 mg PO QAM 06/18/18 [History] Oxybutynin Chloride [Oxybutynin Chloride ER] 15 mg PO QAM 06/18/18 [History] Atorvastatin [Lipitor] 80 mg PO HS #90 tab 06/21/18 [Rx] Nitroglycerin Sl Tabs [Nitrostat] 0.4 mg SUBLINGUAL Q5M PRN tab 06/21/18 [Rx] Aspirin 81 mg PO QAM 06/17/19 [History] Clopidogrel [Plavix] 75 mg PO QAM 06/17/19 [History] Follow up Appointment(s)/Referral(s): Kalyan Arreaga MD [STAFF PHYSICIAN] - 12/23/19 2:30 pm Patient Instructions/Handouts: Left Heart Catheterization (DC), Acute Coronary Syndrome (DC) Discharge Disposition: HOME SELF-CARE
== END 2019-12-17 09:40 | disposition home or self-care (01) ==
LOC: CATHCVL 07:58 → 3NCARDOBS 11:23 → CATHCVL 12-17 09:40
PROVIDERS: ATTEND Internal Medicine Interventional Cardiology
DX: I70.211 Atherosclerosis of native arteries of extremities with intermittent claudication, right leg (principal); I70.92 Chronic total occlusion of artery of the extremities; Z79.02 Long term (current) use of antithrombotics/antiplatelets; Z79.82 Long term (current) use of aspirin; Z79.899 Other long term (current) drug therapy
CPT/HCPCS: 37227; 37252; C1725 ×3; C1894; C1714; C1769 ×4; C1753; C1874; J2250; J1644 ×2; J2001; Q9966; 37225; 76937

== ENCOUNTER → 2022-04-17 | Outpatient (CLI) | payer MEDICARE, OTHER ==
[2022-04-17 07:24] LABS: ALT 27 U/L (4-34); AST 35 U/L (14-36); African American GFR (CKD) 66 (>60 ml/min/1.73 sqM); Albumin 4.5 g/dL (3.5-5.0); Albumin/Globulin Ratio 1.3; Alkaline Phosphatase 98 U/L (38-126); Amylase 60 U/L (30-110); Anion Gap 9 mmol/L; Blood Urea Nitrogen 23 mg/dL (7-17); Calcium 9.4 mg/dL (8.4-10.2); Carbon Dioxide 24 mmol/L (22-30); Chloride 105 mmol/L (98-107); Globulin 3.4 g/dL; Glucose 119 mg/dL (74-99); Lipase 85 U/L (23-300); Non-African American GFR(CKD) 57 (>60 ml/min/1.73 sqM); Potassium 3.9 mmol/L (3.5-5.1); Sodium 138 mmol/L (137-145); Total Bilirubin 0.4 mg/dL (0.2-1.3); Total Protein 7.9 g/dL (6.3-8.2)
[2022-04-17 07:36] LABS: HCT 40.3 % (34.0-46.0); Hypochromasia Slight; MCH 25.9 pg (25.0-35.0); MCHC 32.2 g/dL (31.0-37.0); MCV 80.3 fL (80.0-100.0); Mean Platelet Volume 9.2; Platelet Count 421 k/uL (150-450); RBC 5.02 m/uL (3.80-5.40); RDW 15.4 % (11.5-15.5); WBC 16.8 k/uL (3.8-10.6)
--- NOTE | 2022-04-17 09:23 | CT ---
EXAMINATION TYPE: CT abdomen pelvis w con DATE OF EXAM: 04/17/2022 COMPARISON: None HISTORY: abd pain CT DLP: 1421 mGycm CONTRAST: CT scan of the abdomen and pelvis is performed with Oral Contrast and with IV Contrast, patient injec toyin with 70 mL of Isovue 300. FINDINGS: LUNG BASES-: No visible nodule. No infiltrate. Small fixed hiatal hernia. LIVER/GB: The gallbladder surgically absent No space occupying hepatic lesion. Biliary tree is of normal caliber. PANCREAS: No inflammation. No distinct mass. SPLEEN: No splenic enlargement. No lesion seen. ADRENALS: No nodule. No thickening. KIDNEYS/BLADDER: No hydronephrosis. No nephrolithiasis 1 cm right renal cyst. Mild urinary bladder wall thickening may reflect cystitis. Correlate clinically. BOWEL: Normal appendix. Normal bowel caliber. No inflammation. GENITAL ORGANS: No gross abnormality. LYMPH NODES: No greater than 1cm abdominal or pelvic lymph nodes are appreciated. AORTA: No significant abnormality. OSSEOUS STRUCTURES: No significant abnormality is seen. OTHER: No significant additional abnormality is seen. IMPRESSION: 1. Mild urinary bladder wall thickening may reflect cystitis. Correlate clinically.
== END | disposition home or self-care (01) ==
LOC: RADCTMAIN 06:42
PROVIDERS: ATTEND Internal Medicine
DX: N32.89 Other specified disorders of bladder (principal); R10.827 Generalized rebound abdominal tenderness
CPT/HCPCS: 80053; 82150; 83690; 85027; 74177; 36415; Q9967